=== PATIENT | female | born 1990 | race African-American/Black ===

== ENCOUNTER 2024-12-28 13:58 | Inpatient (IN) | payer MEDICAID, SELFPAY ==
[2024-12-28 13:59] VITALS: BP 138/86; PULSE 109; RESP 20; TEMP 36.3; O2SAT 98; BMI 30.2
--- NOTE | 2024-12-28 14:30 | EDS_ITS ---
HPI History of Present Illness Chief Complaint: Substance Abuse Informant: patient Narrative Narrative: 34-year-old female presenting to the emergency room seeking detox from heroin. Patient states for the past 5 years she has been a daily user of heroin (snortin g). She states that she is sick and tired of being sick and tired. She had previously gone through detox while in [facility]. She notes she last used yesterday. She states that she has a traffic violation upcoming but it should not impede her detox admission. She consents to an HIV test. She has friends with her. She is from the [facility]. ROS ROS ED Constitutional Constitutional ED: Denies chills, fever(s) or weight loss Eyes Eyes: Denies change in vision or diplopia ENT ENT ED: Denies ear pain, rhinorrhea or sore throat Cardiovascular Cardiovascular: Denies chest pain, orthopnea, palpitations or racing heartbeat Respiratory/Chest Respiratory/Chest: Denies cough, dyspnea or orthopnea Gastrointestinal Gastrointestinal: Denies abdominal pain, diarrhea, nausea or vomiting Genitourinary Genitourinary ED: Denies dysuria, hematuria or urinary frequency Musculoskeletal Musculoskeletal: Denies arthralgias or myalgias Integumentary Denies abscess or rash Neurologic Neurologic: Denies headache(s) or weakness Psychiatric Psychiatric: Denies anxiety, depression, suicidal ideation or suicidal thoughts Endocrine Endocrinology: Denies polydipsia, polyphagia or polyuria Allergic/Immunologic Allergic/Immunologic ED: Denies mouth swelling, tongue swelling or urticaria EXAM Physical Exam Const Vital Signs: 12/28/24 13:59 Temperature 97.3 F L Temperature Source Temporal Pulse Rate 109 H Respiratory Rate 20 H Blood Pressure 138/86 H Blood Pressure Mean 103 Pulse Ox 98 Oxygen Delivery Method Room Air Positive well nourished and well developed General Appearance ED: well developed HEENT Reports normocephalic, head/scalp atraumatic and moist mucous membranes Eyes PERRL and EOMs intact bilaterally Neck no lymphadenopathy, supple and no JVD Resp normal respiratory effort and clear to auscultation bilaterally Cardio regular rate, regular rhythm and no murmurs Rate: tachycardic GI normal to inspection, nondistended, normoactive bowel sounds and non-tender Palpation: soft Back/Spine no CVA tenderness and normal ROM Extremity normal to inspection General Extremety ED: Negative for edema General Extremity: Negative for edema Neuro oriented x3 and CN's II-XII intact bilaterally Sensorium / Orientation: alert Motor Exam: strength 5/5 throughout Psych mental status grossly normal Mood & Affect: anxious; Negative for depressed or tearful Skin no rashes or lesions noted and no wounds MDM MDM MDM Narrative Medical decision making narrative: Differential diagnosis includes but not limited to opiate addiction opiate withdrawal polysubstance abuse ED addiction labs and opiate withdrawal score was ordered. We reviewed his labs I will discuss the case with the hospitalist for admission to the rehab program History & Record Review Discussion w/independent historian: Patient and Friend Lab Data Labs: Laboratory Results - last 24 hr 12/28/24 14:05 WBC 11.6 H RBC 4.79 Hgb 14.3 Hct 42.5 MCV 88.7 MCH 29.9 MCHC 33.6 RDW Std Deviation 44.8 H RDW Coeff of Romeo 13.8 Plt Count 328 MPV 11.2 Immature Gran % (Auto) 0.400 Neut % (Auto) 68.0 Lymph % (Auto) 26.6 [place] % (Auto) 3.4 Eos % (Auto) 0.9 Baso % (Auto) 0.7 Absolute Neuts (auto) 7.9 H Absolute Lymphs (auto) 3.10 Nucleated RBC % 0 Serum , Qual NEGATIVE Management Discussion w/another healthcare provider: Hospitalist (Dr Ibrahim) Discharge Plan Dx/Rx/DC Orders Clinical Impression: Opiate withdrawal, Opiate addiction Disposition Disposition: Acute Care Hospital [facility]
[2024-12-28 15:11] LABS: Absolute Neutrophil Count 7.9 X10^3/uL (2.0-7.7); Basophil# 0.08 X10^3/uL; Basophil% 0.7 % (0-1); Eosinophil# 0.11 X10^3/uL; Eosinophils% 0.9 % (0-5); Hematocrit 42.5 % (37-47); Hemoglobin 14.3 g/dL (12.0-15.0); Lymphocyte % 26.6 % (19-41); Mean Corp Hgb Conc 33.6 g/dL (32-36); Mean Corpuscular Hgb 29.9 pg (27.0-32.0); Mean Corpuscular Volume 88.7 fL (81-99); Mean Platelet Vol. 11.2 fl (6.2-12.0); Monocyte% 3.4 % (0-10); NRBC Flagged by Analyzer 0 % (0-5); Platelet Count 328 K/mm3 (150-450); RBC Distribution Width CV 13.8 % (11.6-14.6); RBC Distribution Width SD 44.8 fl (35.1-43.9); Red Blood Count 4.79 M/mm3 (4.2-5.4); White Blood Count 11.6 K/mm3 (4.4-11.0)
[2024-12-28 15:18] LABS: Internal QC Validated? YES +Cl - CLEAR BKGD; Pregnancy, Serum, hCG Quali. NEGATIVE Negative
--- NOTE | 2024-12-28 15:29 | HP.PCM.HOS_ITS ---
HPI - General General Date of Admission: 12/28/24 Date of Service: 12/28/24 Chief Complaint: Opiate detox HPI Narrative REBEKAH DAVID, is a 34 F who presented to the emergency department [facility] on 01/08/2025 with a chief complaint of opiate abuse with request for detox. Patient states she is currently using about a gram a day. Last use was today prior to presentation. PFSH Medical History no medical history Home Medications ?Medication ?Instructions ?Recorded ?Last Taken ?Type NK 12/28/24 Unknown History Allergy/AdvReac Type Severity Reaction Status Date / Time No Known Allergies Allergy Verified 12/28/24 15:47 Social History Smoking Status: Current every day smoker tobacco type: cigarettes Vital Signs Vital Signs Vital Signs: 12/28/24 13:59 Temperature 97.3 F L Temperature Source Temporal Pulse Rate 109 H Respiratory Rate 20 H Blood Pressure 138/86 H Blood Pressure Mean 103 Pulse Ox 98 Oxygen Delivery Method Room Air Weight Weight: 77.3 kg Body Mass Index (BMI) 30.2 Results Lab / Micro Data 12/28/24 14:05 12/28/24 14:05 Labs: Laboratory Results - last 24 hr 12/28/24 14:05: WBC 11.6 H, RBC 4.79, Hgb 14.3, Hct 42.5, MCV 88.7, MCH 29.9, MCHC 33.6, RDW Std Deviation 44.8 H, RDW Coeff of Romeo 13.8, Plt Count 328, MPV 11.2, Immature Gran % (Auto) 0.400, Neut % (Auto) 68.0, Lymph % (Auto) 26.6, [place] % (Auto) 3.4, Eos % (Auto) 0.9, Baso % (Auto) 0.7, Absolute Neuts (auto) 7.9 H, Absolute Lymphs (auto) 3.10, Nucleated RBC % 0, Serum , Qual NEGATIVE Charges/Coding Visit Charges Inpatient E&M: 97178 Init Hosp L1
--- NOTE | 2024-12-28 15:29 | PCM.HP.STD ---
HPI - General General Date of Admission: 12/28/24 Date of Service: 12/28/24 Chief Complaint: Opiate detox HPI Narrative REBEKAH DAVID, is a 34 F who presented to the emergency department [facility] on 01/08/2025 with a chief complaint of opiate abuse with request for detox. Patient states she is currently using about a gram a day. Last use was the day prior to presentation. Patient states she is having some mild withdrawal symptoms at this time to include some anxiety, myalgias, back pain, and some diaphoresis. She states she has detox before but it was in retirement the last time it was pretty horrible experience. She has no outstanding legal issues related to her opiate use. She also admits to tobacco abuse and smokes about a pack of cigarettes daily. Vital signs on presentation showed temperature of 97.3, heart rate 109, respiratory 20, blood pressure is 138/86 and pulse ox was 98% on room air. CBC shows a mild leukocytosis with a white count of 11.6 but a normal differential. And was otherwise unremarkable. Chemistry panel was unremarkable. test was negative. Opiate screen was presumptive positive for fentanyl and opiates in general but was otherwise negative. Alcohol level was less than 10. HIV was performed by the emergency department physician at the request of the patient was nonreactive. [facility] Medical History (Updated 12/28/24 @ 16:[address] Ashley Ibrahim DO) Tobacco abuse Medical History no medical history Home Medications ?Medication ?Instructions ?Recorded ?Last Taken ?Type NK 12/28/24 Unknown History Allergy/AdvReac Type Severity Reaction Status Date / Time No Known Allergies Allergy Verified 12/28/24 15:47 no significant family history no surgical history Social History (Updated 12/28/24 @ 16:[address] Ashley Ibrahim DO) household members: family housing: house Smoking Status: Current every day smoker tobacco type: cigarettes Smoking packs per day: 1 Smoking cigarettes per day: 20.0 alcohol intake: never substance use type: heroin and opiates ROS Constitutional Constitutional: Reports chills and malaise; Denies anorexia, change in weight, fatigue, fever(s), night sweats, weakness or other Eyes Eyes: Denies blurry vision, change in eye color, change in vision, discharge from eye(s), double vision, erythema, eye pain, loss of vision or other ENT HEENT: Denies abnormal hearing, dysphagia, ear pain, epistaxis, headache(s), hearing loss, nasal congestion, nasal discharge, post nasal drip, sinus pressure, sore throat or other Cardiovascular Cardiovascular: Denies chest pain, claudication, dyspnea on exertion, edema, lightheadedness, orthopnea, palpitations, paroxysmal nocturnal dyspnea, rapid heart rate, syncope or other Respiratory/Chest Respiratory/Chest: Denies cough, dyspnea, excessive phlegm production, hemoptysis, productive cough, shortness of breath at rest, shortness of breath with exertion, wheezing or other Gastrointestinal Gastrointestinal: Denies abdominal pain, coffee ground emesis, constipation, diarrhea, dyspepsia, hematemesis, hematochezia, loose stools, melena, nausea, vomiting or other Genitourinary Genitourinary: Denies burning urination, difficulty urinating, dysuria, hematuria, nocturia, urinary frequency, urinary hesitancy, urinary incontinence, urinary urgency or other Musculoskeletal Musculoskeletal: Reports back pain and myalgias; Denies arthralgias, joint pain, joint stiffness, joint swelling, neck pain or other Neurologic Neurologic: Denies abnormal gait, abnormal speech, confusion, disequilibrium, dizziness, focal weakness, headache(s), numbness, paresthesias, seizure-like activity, seizures, syncope, tingling, tremor(s) or other Psychiatric Psychiatric: Reports anxiety; Denies depression, homicidal ideation, suicidal ideation or other Endocrine Endocrinology: Reports excessive sweating; Denies change in body appearance, cold intolerance, heat intolerance, polydipsia, polyuria or other Hematologic/Lymphatic Hematologic/Lymphatic: Denies anemia, easy bleeding, easy bruising, lymphadenopathy or other Allergic/Immunologic Allergic/Immunologic: Denies rhinitis, hives, eczemia, asthma or other Vital Signs Vital Signs Vital Signs: 12/28/24 13:59 Temperature 97.3 F L Temperature Source Temporal Pulse Rate 109 H Respiratory Rate 20 H Blood Pressure 138/86 H Blood Pressure Mean 103 Pulse Ox 98 Oxygen Delivery Method Room Air Weight Weight: 77.3 kg Body Mass Index (BMI) 30.2 Physical Exam Const alert, oriented x3, no apparent distress and well nourished Constitutional Narrative: Overweight, very pleasant, middle-aged, -Thai female, lying in bed, appears comfortable currently, nontoxic, family bedside HEENT normocephalic, head/scalp atraumatic, hearing grossly normal bilaterally and moist oral mucous membranes HEENT Narrative: Mallampati 2, no thrush Resp normal respiratory effort, no retractions, no use of accessory muscles and clear to auscultation bilaterally Auscultation: Negative for rales, rhonchi or wheezes Cardio regular rate, regular rhythm, S1 normal heart sound, S2 normal heart sound, no murmurs, no rub, no gallops, no clicks and no JVD GI normal to inspection, nondistended, normoactive bowel sounds, soft to palpation and non-tender Extremity no clubbing, cyanosis or edema Extremity Narrative: Pedal and radial pulses are 2+ Neuro oriented x3, moves all extremities and no focal motor deficits Speech: speech normal Psych affect normal Psych Narrative: Extremely pleasant, eye contact is good and patient interacts appropriately Results Lab / Micro Data 12/28/24 14:05 12/28/24 14:05 Labs: Laboratory Results - last 24 hr 12/28/24 14:05: WBC 11.6 H, RBC 4.79, Hgb 14.3, Hct 42.5, MCV 88.7, MCH 29.9, MCHC 33.6, RDW Std Deviation 44.8 H, RDW Coeff of Romeo 13.8, Plt Count 328, MPV 11.2, Immature Gran % (Auto) 0.400, Neut % (Auto) 68.0, Lymph % (Auto) 26.6, [place] % (Auto) 3.4, Eos % (Auto) 0.9, Baso % (Auto) 0.7, Absolute Neuts (auto) 7.9 H, Absolute Lymphs (auto) 3.10, Nucleated RBC % 0, Serum , Qual NEGATIVE Assessment & Plan Assessment/Plan (1) Opiate withdrawal: (2) Opiate addiction: PLAN: Plan Opiate abuse and pending withdrawal -Admit to the medical floor -Last use was 12/27/2024 -Has been using 1 g daily -Mild symptoms at the time of admission -Subutex taper per [facility] protocol -Supportive medication for symptom management -180 consultation for assistance with discharge planning Tobacco abuse -Nicotine patch available -Counseled on cessation DVT prophylaxis -Low risk -Encourage early and frequent ambulation CODE STATUS -Full code as verified on admission Charges/Coding Visit Charges Inpatient E&M: 33724 Init Hosp L1
[2024-12-28 15:42] VITALS: BP 138/86; PULSE 99; RESP 16; TEMP 36.7; O2SAT 100
[2024-12-28 15:45] LABS: Alcohol, Blood (Medical)-Serum < 10.1 mg/dL (<=10.0)
[2024-12-28 15:49] LABS: HIV Nonreactive (Nonreactive)
[2024-12-28 15:59] LABS: BUN 12 mg/dL (4-19); Glucose 116 mg/dL (70-99)
[2024-12-28 15:59] LABS: Amphetamine Urine NEGATIVE (<1000 ng/mL); Barbiturate Urine NEGATIVE (< 200 ng/mL); Benzodiazepine Urine NEGATIVE (< 200 ng/mL); Buprenorphine Urine NEGATIVE (< 200 ng/mL); Cocaine Urine NEGATIVE (< 300 ng/mL); Fentanyl, Urine PRESUMPTIVE POSITIVE; Methadone Urine NEGATIVE (< 300 ng/mL); Opiates Urine PRESUMPTIVE POSITIVE (< 300 ng/mL); Oxycodone, Urine NEGATIVE (< 100 ng/mL); PCP Urine NEGATIVE (< 25 ng/mL); THC Urine NEGATIVE (< 50 ng/mL)
[2024-12-28 16:00] LABS: ALB/GLOB Ratio 1.2 RATIO (0.9-2.4); AST(SGOT) 20 U/L (<=31); Alanine Aminotransfer ALT/SGPT 5 U/L (<=34); Albumin, Serum 4.5 g/dL (3.5-5.0); Alkaline Phosphatase 51 U/L (35-104); Anion Gap 15 (5-15); BUN/Creat Ratio 11.9 RATIO (10-20); Calcium,Total 9.6 mg/dL (7.6-11.0); Chloride 101 mmol/L (98-108); EST Glomerular Filtration Rate 77 (>60); Estimated Creatinine Clearance 79.51 ml/min (50-250); Globulin 3.7 g/dL (2.2-4.2); Protein, Total 8.2 g/dL (5.9-8.4); Sodium Level 137 mmol/L (133-145); Total Bilirubin 0.31 mg/dL (0.00-1.30)
[2024-12-28 16:50] VITALS: BMI 28.5
--- NOTE | 2024-12-28 16:55 | NURSING ---
pt states she snorts fentanyl, snorts a line at at time, uses about a gram or more a day. i have been using for a long time. Last use was sunday12/27/24 in afternoon/evening at some point.
[2024-12-28] MEDS: Methocarbamol 750 MG Tablet PO ×2 (17:19→22:58)
[2024-12-28] MEDS: cloNIDine HCl 0.1 MG Tablet PO (17:19)
[2024-12-28] MEDS: Ondansetron 8 MG Tablet PO (17:19)
[2024-12-28] MEDS: Ibuprofen 400 MG Tablet PO ×2 (17:19→22:58)
[2024-12-28] MEDS: Gabapentin 300 MG Capsule PO (17:19)
[2024-12-28] MEDS: Dicyclomine 10 MG Capsule 20 MG PO ×2 (17:19→22:58)
[2024-12-28] MEDS: Buprenorphine HCl 2 MG TAB.SUBL 4 MG SL (17:19)
[2024-12-28 17:23] VITALS: BP 132/79; PULSE 79; RESP 18; TEMP 36.7; O2SAT 100
[2024-12-28 20:10] VITALS: BP 120/64; PULSE 87; RESP 16; TEMP 36.6; O2SAT 96
[2024-12-28] MEDS: hydrOXYzine PAM 25 MG Capsule 50 MG PO (20:14)
[2024-12-28] MEDS: traZODone 100 MG Tablet PO (20:14)
[2024-12-28] MEDS: Acetaminophen 325 MG Tablet 650 MG PO (20:14)
--- NOTE | 2024-12-28 21:16 | PCM.HOSP.N ---
Hospitalist Note Patient with severe agitation, already administered her PRN agents, will administer IM haldol 1 mg x 1 and continue to monitor for further needs.
[2024-12-28] MEDS: Haloperidol Lactate 5 MG/ML Vial 1 MG IM (21:30)
[2024-12-29] MEDS: Buprenorphine HCl 2 MG TAB.SUBL 4 MG SL ×2 (00:45→08:56)
[2024-12-29 02:41] VITALS: BP 121/76; PULSE 80; RESP 16; TEMP 36.7; O2SAT 97
[2024-12-29] MEDS: Haloperidol Lactate 5 MG/ML Vial 1 MG IM (04:05)
--- NOTE | 2024-12-29 08:24 | PN.HOSP_ITS ---
Reason for Visit Reason for Visit: Diagnoses Opioid dependence, uncomplicated (12/28/24) Opioid use, unspecified with withdrawal (12/28/24) Subjective Subjective Feeling better today Objective Data Objective Data Vital Signs: Vital Signs Temp Pulse Resp BP Pulse Ox O2 Del Method 36.7 C 80 16 121/76 H 97 Room Air 12/29/24 02:41 12/29/24 02:41 12/29/24 02:41 12/29/24 02:41 12/29/24 02:41 12/29/24 02:41 Oxygen Delivery Method Room Air Weight: 73.028 kg Body Mass Index (BMI) 28.5 Lab / Micro Data 12/28/24 14:05 12/28/24 14:05 Labs: Laboratory Results - last 24 hr 12/28/24 14:00: Urine Opiates Screen PRESUMPTIVE POSITIVE, U Buprenorphine Qual NEGATIVE, Ur Oxycodone Screen NEGATIVE, Urine Methadone Screen NEGATIVE, Urine Fentanyl Screen PRESUMPTIVE POSITIVE, Ur Barbiturates Screen NEGATIVE, Ur Phencyclidine Scrn NEGATIVE, Ur Amphetamines Screen NEGATIVE, U Benzodiazepines Scrn NEGATIVE, Urine Cocaine Screen NEGATIVE, U Cannabinoids Screen NEGATIVE 12/28/24 14:05: WBC 11.6 H, RBC 4.79, Hgb 14.3, Hct 42.5, MCV 88.7, MCH 29.9, MCHC 33.6, RDW Std Deviation 44.8 H, RDW Coeff of Romeo 13.8, Plt Count 328, MPV 11.2, Immature Gran % (Auto) 0.400, Neut % (Auto) 68.0, Lymph % (Auto) 26.6, [place] % (Auto) 3.4, Eos % (Auto) 0.9, Baso % (Auto) 0.7, Absolute Neuts (auto) 7.9 H, Absolute Lymphs (auto) 3.10, Nucleated RBC % 0, Sodium 137, Potassium 4.0, Chloride 101, Carbon Dioxide 21.0, Anion Gap 15, BUN 12, Creatinine 1.00, Estim Creat Clear Calc 79.51, Est GFR (MDRD) Non-Af 77, BUN/Creatinine Ratio 11.9, Glucose 116 H, Calcium 9.6, Total Bilirubin 0.31, AST 20, ALT 5, Alkaline Phosphatase 51, Total Protein 8.2, Albumin 4.5, Globulin 3.7, Albumin/Globulin Ratio 1.2, Serum , Qual NEGATIVE, Ethyl Alcohol < 10.1, HIV 1&2 Antibody Nonreactive Physical Exam Const alert and no apparent distress HEENT head/scalp atraumatic Assessment & Plan Assessment/Plan (1) Opiate withdrawal: PLAN: on buprenorphine taper addiction medicine to see to facilitate outpt programs. Had severe agitational last night and required a 1x dose of haloperidol. Discussed with the patient about getting her through opiate withdrawal and to follow-up with addiction medicine regards to long-term management. After I seen the patient, patient informed nursing issues leaving AGAINST MEDICAL ADVICE.
[2024-12-29] MEDS: Methocarbamol 750 MG Tablet PO (09:03)
[2024-12-29] MEDS: cloNIDine HCl 0.1 MG Tablet PO (09:03)
[2024-12-29 09:08] VITALS: BP 114/66; PULSE 89; RESP 14; TEMP 36.6; O2SAT 99
--- NOTE | 2024-12-29 13:50 | ADDICTION ---
clinician met with patient to discuss tx options. client I'm leaving now. client was standing in doorway of her room. clinician attempted to engage client in discussion regarding discharge plans, client refused services.
--- NOTE | 2024-12-29 14:27 | DS.PCM_ITS ---
Providers Date of Admission: 12/28/24 Primary Care Physician: Alejandra Primary Care Phys Reason For Visit: OPIATE DETOX Diagnosis Discharge Diagnosis (1) Opiate withdrawal: Status: Acute Code(s): F11.93 - Opioid use, unspecified with withdrawal Plan: on buprenorphine taper addiction medicine to see to facilitate outpt programs. Had severe agitational last night and required a 1x dose of haloperidol. Discussed with the patient about getting her through opiate withdrawal and to follow-up with addiction medicine regards to long-term management. After I seen the patient, patient informed nursing issues leaving AGAINST MEDICAL ADVICE. Medications at Discharge Home Medications NK 12/28/24 Weight / BMI Weight Weight: 73.028 kg Body Mass Index (BMI) 28.5 ABG / Lab / Microbiology Data 12/28/24 14:05 12/28/24 14:05 Laboratory: Laboratory Results - last 24 hr 12/28/24 14:00: Urine Opiates Screen PRESUMPTIVE POSITIVE, U Buprenorphine Qual NEGATIVE, Ur Oxycodone Screen NEGATIVE, Urine Methadone Screen NEGATIVE, Urine Fentanyl Screen PRESUMPTIVE POSITIVE, Ur Barbiturates Screen NEGATIVE, Ur Phencyclidine Scrn NEGATIVE, Ur Amphetamines Screen NEGATIVE, U Benzodiazepines Scrn NEGATIVE, Urine Cocaine Screen NEGATIVE, U Cannabinoids Screen NEGATIVE 12/28/24 14:05: WBC 11.6 H, RBC 4.79, Hgb 14.3, Hct 42.5, MCV 88.7, MCH 29.9, MCHC 33.6, RDW Std Deviation 44.8 H, RDW Coeff of Romeo 13.8, Plt Count 328, MPV 11.2, Immature Gran % (Auto) 0.400, Neut % (Auto) 68.0, Lymph % (Auto) 26.6, [place] % (Auto) 3.4, Eos % (Auto) 0.9, Baso % (Auto) 0.7, Absolute Neuts (auto) 7.9 H, Absolute Lymphs (auto) 3.10, Nucleated RBC % 0, Sodium 137, Potassium 4.0, Chloride 101, Carbon Dioxide 21.0, Anion Gap 15, BUN 12, Creatinine 1.00, Estim Creat Clear Calc 79.51, Est GFR (MDRD) Non-Af 77, BUN/Creatinine Ratio 11.9, Glucose 116 H, Calcium 9.6, Total Bilirubin 0.31, AST 20, ALT 5, Alkaline Phosphatase 51, Total Protein 8.2, Albumin 4.5, Globulin 3.7, Albumin/Globulin Ratio 1.2, Serum , Qual NEGATIVE, Ethyl Alcohol < 10.1, HIV 1&2 Antibody Nonreactive D/C Instructions Discharge Diet: No restrictions DC O2, CPAP, BIPAP Needs Home O2 Discharge instructions: No Meaningful Use Info Meaningful Use Meaningful Use Diagnoses (Choose all that apply): None applicable Ischemic Stroke Statin Dosing Therapy Reference: STATIN DOSE THERAPY REFERENCE: * Patients > 75 years receive moderate or high dose statin therapy. * Patients 75 years or YOUNGER should receive HIGH intensity statin dose unless contraindicated. You will be required to document reason for non-treatment if statin daily dose does not meet guidelines. HIGH DOSE STATIN THERAPY DAILY Atorvastatin > than or = to 40 mg Rosuvastatin > than or = to 20 mg Amlodipine + Atorvastatin > than or = to 2.5/40 mg Ezetimibe + Simvastatin 10/80 mg Simvastatin 80mg Discharge Plan Admission Admit Date/Time: 12/28/24 15:27 Primary Reason for Your Visit: opiate withdrawal Attending Provider: Neville Johnson Primary Care Provider: Care Physician,No Primary Consulting Providers: Ashley Ibrahim Discharge Orders/Prescriptions Prescriptions: No Action NK Referrals / Follow Up: Care Physician,No Primary [Primary Care Provider] - Disposition Disposition (needs filled in before D/C Order can be placed): Against Medical Advice Charges/Coding Visit Charges Inpatient E&M: 50437 Disch Hosp
--- NOTE | 2024-12-29 16:08 | CHAPLAIN ---
Type of Pastoral Visit ___ Initial Visit ___ Follow-up Visit ___ On-call Visit ___ General Patient Visit ___ Spiritual Assessment ___ Family Conference ___ Bereavement ___ Rapid Response ___ Code Blue ___ Other (describe below) Pastoral Care Referral From ___ Patient ___ Family ___ Nurse ___ Physician ___ Delinquent Account Clerk ___ Dental Billing Specialist ___ Other (describe below) Sacrament/Intervention ___ Active listening ___ Anointing ___ Mormon ___ Bereavement ___ Communion ___ Caitlin exploration ___ ___ Life review ___ Prayer ___ Reconciliation ___ Sacrament of Sick ___ Supportive presence ___ Wedding ___ Other (describe below) Pastoral Comments patient was being discharged and was unable to have a visit
== END 2024-12-29 14:04 | disposition left against medical advice (07) | DRG 770 ==
LOC: ED 15:24 → MS3 16:04
PROVIDERS: Admitting Provider Internal Medicine; Emergency Provider Emergency Medicine; Referring Provider Internal Medicine
DX: F11.23 Opioid dependence with withdrawal (principal); F17.210 Nicotine dependence, cigarettes, uncomplicated; R45.1 Restlessness and agitation
CPT/HCPCS: 80053; 80307; 82077; 84703; 85025; 86703; 99283